=== PATIENT | male | born 1965 | race African-American/Black ===

== ENCOUNTER 2016-07-06 09:50 | Emergency (ER) | payer MEDICARE, OTHER | END 2016-07-06 12:35 | disposition home or self-care (01) | LOC: ER 09:50 | DX: E11.65 Type 2 diabetes mellitus with hyperglycemia (principal); I10 Essential (primary) hypertension; F32.9 Major depressive disorder, single episode, unspecified; F17.210 Nicotine dependence, cigarettes, uncomplicated; Z88.0 Allergy status to penicillin; Z90.49 Acquired absence of other specified parts of digestive tract; Z88.8 Allergy status to other drugs, medicaments and biological substances | CPT/HCPCS: 36415; 96361; 96374 ==